=== PATIENT | male | born 1960 | race Caucasian/White ===

== ENCOUNTER 2016-10-29 12:50 | Outpatient (CLI) | payer BC | END 2016-10-29 12:51 | disposition home or self-care (01) | DX: R06.00 Dyspnea, unspecified (principal); E78.2 Mixed hyperlipidemia ==

== ENCOUNTER 2016-11-15 12:59 | Outpatient (CLI) | payer BC | END 2016-11-15 13:00 | disposition home or self-care (01) | DX: R06.00 Dyspnea, unspecified (principal); Z82.49 Family history of ischemic heart disease and other diseases of the circulatory system ==

== ENCOUNTER 2016-11-18 16:22 | Outpatient (CLI) | payer BC | END 2016-11-18 16:23 | disposition home or self-care (01) | DX: M54.5 Low back pain (principal); M51.36 Other intervertebral disc degeneration, lumbar region ==

== ENCOUNTER 2024-02-16 14:41 | Outpatient (CLI) | payer OTHER ==
--- NOTE | 2024-02-16 19:50 | XRAY Report ---
PROCEDURE: Shoulder 2+V RT INDICATIONS: PAIN IN RIGHT SHOULDER TECHNIQUE: 3 views of the shoulder were acquired. COMPARISON: None. FINDINGS: Bones: No fractures or dislocations. No suspicious bony lesions. Mild glenohumeral joint degenerati ve change. Visualized ribs appear intact. Soft tissues: No suspicious soft tissue calcifications. The visualized lungs are within normal limi ts. IMPRESSION: No acute bony abnormality. Mild glenohumeral joint degenerative change. Reviewed by: Herrera Madrid MD on 02/16/2024 7:48 PM PDT Approved by: Herrera Madrid MD on 02/16/2024 7:48 PM PDT Station ID: [id number]
== END 2024-02-16 14:42 | disposition home or self-care (01) ==
LOC: DI 14:41
PROVIDERS: ATTEND Registered Nurse
DX: M19.011 Primary osteoarthritis, right shoulder (principal); M25.311 Other instability, right shoulder; M54.12 Radiculopathy, cervical region; M62.830 Muscle spasm of back